=== PATIENT | female | born 1975 | race Caucasian/White ===

== ENCOUNTER 2024-02-04 10:54 | Emergency (ER) | payer OTHER, SELFPAY ==
[2024-02-04 10:55] VITALS: BP 127/82; PULSE 82; RESP 23; TEMP 36.6; O2SAT 100; BMI 23.1
--- NOTE | 2024-02-04 10:56 | EDS_ITS ---
HPI History of Present Illness Chief Complaint: Chest Pain PFS PFS Medical History no medical history Home Medications ?Medication ?Instructions ?Recorded ?Last Taken ?Type NK 02/04/24 Unknown History Allergy/AdvReac Type Severity Reaction Status Date / Time No Known Allergies Allergy Verified 02/04/24 10:55 Family History no significant family his Surgical History no surgical history Social History Smoking Status: Never smoker EXAM Physical Exam Const Vital Signs: 02/04/24 10:55 02/04/24 11:05 02/04/24 11:45 Temperature 98 F Temperature Source Temporal Pulse Rate 82 69 Respiratory Rate 23 H 27 H Blood Pressure 127/82 H 105/74 Blood Pressure Mean 97 84 Pulse Ox 100 98 100 Oxygen Delivery Method Room Air Room Air 02/04/24 12:00 02/04/24 13:00 Temperature Temperature Source Pulse Rate 69 76 Respiratory Rate 15 15 Blood Pressure 104/68 102/61 Blood Pressure Mean 80 74 Pulse Ox 98 99 Oxygen Delivery Method Room Air MDM MDM MDM Narrative Medical decision making narrative: HISTORY OF PRESENT ILLNESS: 48-year-old female presents with concern for chest pain. She states she has been experiencing transient chest pain since Friday night. She states it feels like it pain. She note some difficulty breathing. She notes this began 3 months ago. She describes her pain as sharp but not pressure-like, not ripping or tearing. She denies any prior cardiac history. She notes diffuse weakness, fatigue, difficulty breathing especially with exertion. Denies fever, chills, sick contacts, cough, leg swelling, focal weakness, bleeding diathesis, vomiting, diarrhea, changes in urinary habits. Denies abdominal pain. Denies headache. The patient denies recent surgery in the last 4 weeks or immobilization in the last 3 days, denies previous diagnosis of DVT or PE, hemoptysis, unilateral leg swelling or malignancy with treatment the last 6 months or palliative. No estrogen use noted. Patient denies sudden onset of pain, no tearing sensation, no migratory symptoms, no new numbness, weakness or loss of sensation. Patient denies family history or personal history of Connective tissue disorders (Marfan's Syndrome, Rob Danlos etc) REVIEW OF SYSTEMS: Pertinent positives: Chest pain, lightheadedness Pertinent negatives: Shortness of breath, leg swelling, focal weakness PHYSICAL EXAM: Nursing triage notes reviewed, Vital signs reviewed Constitutional: please see mdm HENT: MMM Eyes: Pupils equal round and reactive to light, Extraocular muscles intact Neck: No stridor, no JVD, full neck ROM Lungs: Clear to auscultation, No wheezing or rales. No increased work of breathing, no conversational dyspnea, no accessory muscle use, no nasal flaring. No respiratory distress noted Heart: Regular rate and rhythm, No murmurs, No rubs and No gallops, 2+ distal pulses (radial, femoral, posterior tibial) in all extremities Abdomen: Soft, there is no tenderness, rigidity, rebound or guarding, no obvious peritoneal signs, no palpable pulsatile abdominal masses, no auscultated abdominal bruit : No CVAT Extremities: No edema Neuro: No focal neurological deficits, cranial nerves II through XII intact, 5/5 strength in all extremities. Intact sensation to light touch in all extremities, 2+ reflexes bilateral patella tendons. Normal gait. No ataxia. Skin: No rash or lesions noted MEDICAL DECISION MAKING: Chief Complaint: Chest pain External records reviewed: Reviewed [facility] records. No recent echocardiograms, cardiac catheterizations or cardiac stress test noted Factors affecting care: none reported Social determinants of health: Denies cocaine or methamphetamine abuse History obtained from others: Spouse Consults: none MDM Narrative: The patient was initially hemodynamically stable, afebrile and nontoxic- appearing. Exam without focal cardiopulmonary normalities. No stigmata of VTE or dissection. I considered the following differential diagnosis: ACS, anemia, arrhythmia, pneumonia, pericarditis, pneumothorax, PE, aortic dissection I obtained a broad lab and imaging workup to further elucidate etiology of patient complaint. Patient was initially treated with aspirin for mortality benefit. I considered pulmonary embolism however the patient had a low risk Wells score and as such have a lower suspicion for PE. Consider obtaining a CT of the chest to rule out PE without does not indicate the time given low risk Wells score, no tachycardia, no hypoxia or stigmata of VTE. I also considered aortic dissection as a potential etiology however the patient's pain was not ripping or tearing, she had no history of connective tissue diseases, no focal deficits or pulse deficits to suggest dissection. I consider obtaining a CT scan chest abdomen pelvis without does not indicate the time given lack of historical or physical exam risk factors. ALL IMAGES (IF OBTAINED) HAVE BEEN PERSONALLY REVIEWED AND INTERPRETED BY MYSELF. EKG with normal sinus rhythm, left axis deviation, normal intervals, no obvious STEMI, no evidence of Brugada syndrome, ARVD, pericarditis, WPW High-sensitivity troponin is negative, no evidence of myocardial ischemiax2 CBC without leukocytosis, severe anemia, no thrombocytopenia. I have personally reviewed the patient's chest x-ray. Chest x-ray is unremarkable for pulmonary edema, pneumothorax, pneumonia or focal cardiopulmonary abnormality. BMP without evidence of significant electrolyte abnormalities, no anion gap, no acute kidney injury. The patient and/or family, caregivers express understanding. The patient and/or family, caregivers agrees with the plan. Shared decision making: I will have a discussion with the patient and or visitors regarding risk/benefits of further testing or admission. They will be made aware of of the risk/benefits inherent in this decision they will be given the opportunity to voice understanding. Total critical care time today provided was at least 0] minutes. This excludes separately billable procedures. Critical care time (if documented) is secondary to the patient having high probability of clinically significant/life threatening deterioration in the patient's condition which required my urgent intervention. Impression: 1. Chest pain Dispo: Discharge This note was generated with [employer] dictation software. It may contain incorrect words, spelling, and punctuation that were not noted in review of the chart prior to signing. Lab Data Labs: Laboratory Results - last 24 hr 02/04/24 02/04/24 10:56 13:04 WBC 4.9 RBC 4.89 Hgb 14.6 Hct 43.5 MCV 89.0 MCH 29.9 MCHC 33.6 RDW Std Deviation 40.1 RDW Coeff of Leonel 12.3 Plt Count 213 MPV 8.7 Immature Gran % (Auto) 0.200 Neut % (Auto) 59.7 Lymph % (Auto) 29.7 [place]pton % (Auto) 9.2 Eos % (Auto) 0.8 Baso % (Auto) 0.4 Absolute Neuts (auto) 2.9 Absolute Lymphs (auto) 1.46 Nucleated RBC % 0 Sodium 140 Potassium 3.6 Chloride 108 H Carbon Dioxide 25.0 Anion Gap 7 BUN 11 Creatinine 0.66 Estim Creat Clear Calc 89.04 Est GFR (MDRD) Af Amer 122 Est GFR (MDRD) Non-Af 101 BUN/Creatinine Ratio 16.6 Glucose 89 Calcium 9.5 Troponin I High Sens < 3 L 4 Radiography Diagnostic Testing: Clinical Impression(s) from Imaging Studies Chest X-Ray 02/04/24 11:20 IMPRESSION: Normal x-ray examination of the chest. Electronically Signed: Viral Munoz MD at 11:56 EDT , Discharge Plan Triage Chief Complaint: Chest Pain ED Provider: Ehsan Piper Dx/Rx/DC Orders Prescriptions: No Action NK Primary Care Provider: Iron Velarde Referrals: Iron Velarde, [Primary Care Provider] - Print Language: Slovenian
--- NOTE | 2024-02-04 11:03 | EKG12_ITS ---
Test Reason : CP Blood Pressure : / mmHG Vent. Rate : 078 BPM Atrial Rate : 078 BPM P-R Int : 152 ms QRS Dur : 072 ms QT Int : 378 ms P-R-T Axes : 056 -24 001 degrees QTc Int : 430 ms Normal sinus rhythm Nonspecific ST and T wave abnormality Abnormal ECG Confirmed by Arnold Alexander ([id number]), health editor RASHAAD DAVE ([id number]) on 02/05/2024 2:04:38 PM Referred By: NASIR/MIKA Confirmed By:Arnold Alexander
[2024-02-04 11:05] VITALS: O2SAT 98
[2024-02-04] MEDS: Aspirin 81 MG TAB.CHEW 324 MG PO (11:08)
[2024-02-04 11:16] LABS: Absolute Lymphocyte Count 1.46 X10^3/uL (0.83-4.51); Absolute Neutrophil Count 2.9 X10^3/uL (2.0-7.7); Basophil# 0.02 X10^3/uL; Basophil% 0.4 % (0-1); Eosinophil# 0.04 X10^3/uL; Eosinophils% 0.8 % (0-5); Hematocrit 43.5 % (37-47); Hemoglobin 14.6 g/dL (12.0-15.0); Lymphocyte # 1.46 X10^3/ul (0.83-4.51); Lymphocyte % 29.7 % (19-41); Mean Corp Hgb Conc 33.6 g/dL (32-36); Mean Corpuscular Hgb 29.9 pg (27.0-32.0); Mean Platelet Vol. 8.7 fl (6.2-12.0); Monocyte# 0.45 X10^3/uL; Monocyte% 9.2 % (0-10); NRBC Flagged by Analyzer 0 % (0-5); Neutrophil # 2.93 X10^3/uL (2.7-7.7); Neutrophil % 59.7 % (47-70); Platelet Count 213 K/mm3 (150-450); RBC Distribution Width CV 12.3 % (11.6-14.6); RBC Distribution Width SD 40.1 fl (35.1-43.9); Red Blood Count 4.89 M/mm3 (4.2-5.4); White Blood Count 4.9 K/mm3 (4.4-11.0)
--- NOTE | 2024-02-04 11:20 | RAD_ITS ---
STUDY: X-RAY CHEST REASON FOR EXAM: Female, 48 years old. Chest pain TECHNIQUE: Single AP portable view of the chest. COMPARISON: None. FINDINGS: EKG electrodes are seen. The lungs are clear and expanded. Scattered calcified granulomas. There is no demonstrated pleural abnormality. Normal size heart. Normal mediastinum and armen. Normal visualized pulmonary arteries. Normal visualized aortic arch and descending thoracic aorta. Normal visualized thoracic spine. Normal visualized ribs, clavicles, and shoulders. There is no demonstrated abnormality of the visualized soft tissue structures of the upper abdomen. RAD/Chest 1 View (Portable) IMPRESSION: Normal x-ray examination of the chest. Electronically Signed: Viral Munoz MD at 11:56 EDT ,
[2024-02-04 11:32] LABS: Anion Gap 7 (5-15); BUN 11 mg/dL (7-18); BUN/Creat Ratio 16.6 RATIO (10-20); Calcium,Total 9.5 mg/dL (8.5-10.1); Chloride 108 mmol/L (98-107); Creatinine, Serum 0.66 mg/dL (0.55-1.02); EST Glomerular Filtration Rate 101 mL/min (>60); Est Glom Filt Rate - Afr Amer 122 mL/min (>60); Estimated Creatinine Clearance 89.04 ml/min; Glucose 89 mg/dL (74-106); Potassium 3.6 mmol/L (3.5-5.1); Sodium Level 140 mmol/L (136-145); Troponin-I HS (w/2H Reflex) < 3 pg/mL (3.0-54.0)
[2024-02-04 11:45] VITALS: BP 105/74; PULSE 69; RESP 27; O2SAT 100
[2024-02-04 12:00] VITALS: BP 104/68; PULSE 69; RESP 15; O2SAT 98
[2024-02-04 13:00] VITALS: BP 102/61; PULSE 76; RESP 15; O2SAT 99
[2024-02-04 13:05] LABS: Reflex Troponin-HS? (from REC) Y
[2024-02-04 13:33] LABS: Troponin-I HS 4 pg/mL (3.0-54.0)
[2024-02-04 13:37] VITALS: BP 104/68; PULSE 72; RESP 16; TEMP 36.6; O2SAT 99
== END 2024-02-04 13:52 | disposition home or self-care (01) ==
PROVIDERS: Emergency Provider Emergency Medicine; PCP Family Medicine; Visit Provider Emergency Medicine
DX: R07.9 Chest pain, unspecified (principal)
CPT/HCPCS: 71045; 80048; 84484; 85025; 93005; 99285; A4216

== ENCOUNTER → 2024-02-10 | Outpatient (CLI) | payer SELFPAY, OTHER ==
--- NOTE | 2024-02-10 10:52 | ECHOD_ITS ---
Reason For Study: SOB, FATIGUE Procedure This was a 2D Doppler, Color Flow transthoracic echocardiogram. The study was technically difficult. PT was shaking/shivering for first half of exam due to possibly being nervous; was given a warm blanket. Exam performed in department. Left Ventricle Normal LV size. Left ventricular systolic function is normal. The left ventricular ejection fraction is 65 %. Normal diastololic function. No regional wall motion abnormalities noted. Right Ventricle Normal RV size. The right ventricle is normal in size, function, and thickness. Atria Normal left atrium. Normal right atrium. Mitral Valve Normal mitral valve. Tricuspid Valve Normal tricuspid valve. Mild tricuspid valve insufficiency. Pulmonary artery systolic pressure is 24 mmHg. Aortic Valve Normal aortic valve. Pulmonic Valve Normal pulmonic valve. Great Vessels Normal aortic root. Pericardium/Pleural No pericardial effusion. MMode/2D Measurements & Calculations LVIDd: 4.2 cm IVSd: 0.70 cm Ao root diam: 2.8 cm LVIDs: 2.8 cm LVPWd: 0.78 cm RVDd: 2.8 cm FS: 33.0 % LAV(MOD-bp): 48.8 ml LVAd ap4: 23.8 cm2 SV(MOD-sp4): 40.8 ml LAV(MOD-bp) Indexed: 30.0 ml/m2 LVLd ap4: 7.9 cm LAV(MOD-sp2): 47.5 ml EDV(MOD-sp4): 62.0 ml LAV(MOD-sp4): 50.3 ml EDV(sp4-el): 60.5 ml LVAs ap4: 12.4 cm2 LVLs ap4: 6.5 cm ESV(MOD-sp4): 21.2 ml ESV(sp4-el): 20.0 ml EF(MOD-sp4): 65.8 % EF(sp4-el): 67.0 % SV(sp4-el): 40.5 ml LA A4 area: 18.0 cm2 LA dimension(2D): 3.2 cm RA A4 area: 13.3 cm2 TAPSE: 2.6 cm Time Measurements MV dec time: 0.23 sec Doppler Measurements & Calculations MV E max bran: 84.9 cm/sec Lat Peak E' Bran: 18.8 cm/sec Med Peak E' Bran: 16.2 cm/sec MV A max bran: 55.0 cm/sec E/E' lat: 4.5 E/E' med: 5.3 MV E/A: 1.5 MV V2 max: 87.7 cm/sec MV P1/2t max bran: 87.7 cm/sec Ao V2 max: 152.8 cm/sec MV max P.1 mmHg MV P1/2t: 70.1 msec Ao max P.3 mmHg MV V2 mean: 54.4 cm/sec Ao V2 mean: 103.5 cm/sec MV mean P.4 mmHg MV dec slope: 366.7 cm/sec2 Ao mean P.9 mmHg MV V2 VTI: 24.9 cm MVA(P1/2t): 3.1 cm2 Ao V2 VTI: 33.4 cm AV (velocity ratio): 0.84 LV V1 max: 132.4 cm/sec PA V2 max: 86.6 cm/sec TR max bran: 232.9 cm/sec LV V1 max P.0 mmHg PA V2 mean: 64.0 cm/sec TR max P.7 mmHg LV V1 mean P.8 mmHg LV V1 mean: 91.9 cm/sec LV V1 VTI: 28.0 cm ECHO/Echo Complete Interpretation Summary Normal LV size. Left ventricular systolic function is normal. The left ventricular ejection fraction is 65 %. Pulmonary artery systolic pressure is 24 mmHg. Structurally normal valves. Ordering Physician: Iron Velarde Referring Physician: Iron Velarde Performed By: Patricia Rushing, MADDI, RVT
== END | disposition home or self-care (01) ==
PROVIDERS: PCP Family Medicine; Referring Provider Family Medicine; Visit Provider Family Medicine
DX: R53.83 Other fatigue (principal); R06.02 Shortness of breath
CPT/HCPCS: 93306